=== PATIENT | female | born 1975 | race African-American/Black ===

== ENCOUNTER 2017-03-27 16:34 | Emergency (ER) | payer OTHER ==
[~2017-03-27] VITALS: Ht 165.1 cm; Wt 116.1 kg
[~2017-03-27 16:34] MED LIST: LISINOPRIL-HCT1 EACH PO; PROPRANOLOL HCL60 MG PO; ZOFRAN ODT4 MG PO
[2017-03-27 17:32] LABS: HEMATOCRIT 39.5 % (36.0-46.0); MCH 27.6 PG (29.0-34.0); MCHC 31.9 G/DL (30.0-36.0); MCV 86.4 FL (83-99); MEAN PLAT.VOLUME 10.4 uM^3 (9.5-12.4); PLATELET COUNT 269 K/uL (156-360); RBC DIS.WIDTH-CV 14.3 % (11.8-14.6); RBC DIS.WIDTH-SD 45.1 % (39-53); RED BLOOD COUNT 4.57 M/uL (3.80-5.20); WHITE BLOOD COUNT 8.7 K/uL (4.1-10.2)
[2017-03-27 17:44] LABS: AMYLASE 88 IU/L (1-118); CHLORIDE 107 mEq/L (99-109); POTASSIUM 3.8 mEq/L (3.7-5.4); SODIUM 141 mEq/L (136-147)
[2017-03-27 17:46] LABS: GLUCOSE 86 mg/dL (70-99)
[2017-03-27 17:47] LABS: ANION GAP 9 MEQ/L (2-14)
[2017-03-27 17:48] LABS: TOTAL BILIRUBIN 0.4 mg/dL (0.0-1.0)
[2017-03-27 17:49] LABS: ALKALINE PHOSPHATASE 70 IU/L (3-129)
[2017-03-27 17:50] LABS: GFR ESTIMATE (CALCULATED) > 59 mL/min/
[2017-03-27 17:51] LABS: UREA NITROGEN (BUN) 11 mg/dL (9-23)
[2017-03-27 17:53] LABS: LIPASE 239 U/L (1.0-51.0)
[2017-03-27 17:59] LABS: ADD MIUA? YES; BILIRUBIN NEGATIVE; BLOOD NEGATIVE; COLOR YELLOW ((YELLOW)); GLUCOSE (STRIP) NEGATIVE; KETONES NEGATIVE; LEUKOCYTES NEGATIVE; NITRITE NEGATIVE; PROTEIN (STRIP) NEGATIVE; SPECIFIC GRAVITY 1.016 (1.000-1.030); UROBILINOGEN 0.2 MG/DL (0.2-1.0)
[2017-03-27 18:17] LABS: BACTERIA NONE SEEN /HPF; EPITHELIAL CELLS 1+ /HPF; MUCUS TRACE /LPF; RED BLOOD CELLS 0-5 /HPF (0-5); UCUL ADDED? YES; UNCLASSIFIED CASTS 0-5 /LPF
[2017-03-27] MEDS ORDERED: CIPRO500 MG PO (21:10)
[2017-03-27] MEDS ORDERED: TYLENOL WITH C1 EACH PO (21:10)
[2017-03-27 21:25] VITALS: BP 140/76
== END 2017-03-27 21:26 | disposition home or self-care (01) ==
LOC: EME 16:34
PROVIDERS: Physician Assistant
DX: R10.12 Left upper quadrant pain (principal); I10 Essential (primary) hypertension; Z86.718 Personal history of other venous thrombosis and embolism; Z86.711 Personal history of pulmonary embolism; F17.200 Nicotine dependence, unspecified, uncomplicated
CPT/HCPCS: 76705; 80053; 81003; 82150; 83690; 85027; 87086; 99281; 99284

== ENCOUNTER 2017-11-24 08:18 | Emergency (ER) | payer SELFPAY ==
[~2017-11-24] VITALS: Ht 165.1 cm; Wt 117.8 kg
[~2017-11-24 08:18] MED LIST changes: +CIPRO500 MG PO; +TYLENOL WITH C1 EACH PO
[2017-11-24 08:26] VITALS: BP 188/120
[2017-11-24] MEDS ORDERED: AUGMENTIN875 MG PO (10:30)
[2017-11-24] MEDS ORDERED: ZOFRAN ODT4 MG PO (10:30)
== END 2017-11-24 10:54 | disposition home or self-care (01) ==
LOC: EME 08:18
DX: J32.9 Chronic sinusitis, unspecified (principal); R11.0 Nausea; I10 Essential (primary) hypertension; F17.200 Nicotine dependence, unspecified, uncomplicated
CPT/HCPCS: 99281; 99283